=== PATIENT | female | born 1970 | race Caucasian/White ===

== ENCOUNTER 2024-07-13 07:31 | Outpatient (CLI) | payer MEDICAID, SELFPAY ==
--- NOTE | 2024-07-13 07:35 | MR_ITS ---
WS: [id number] MRI RIGHT SHOULDER NONCONTRAST TECHNIQUE: Sagittal T2, coronal T1, T2 and proton density imaging. Axial gradient PDE imaging. CLINICAL INFORMATION: RIGHT SHOULDER DERANGEMENT COMPARISON: None. FINDINGS: Moderate degenerative arthritis AC joint with fluid and edema. Subacromial subdeltoid fluid. Slight s ubacromial spurring. Impingement on the distal supraspinatus with tendinopathy. Tiny intrasubstance t ear distal supraspinatus. No tendon retraction. Normal infraspinatus. Normal teres minor. Subscapularis tendon appears intact. Biceps tendon appears intact within the bicipital groove. Intra-articular biceps tendon appears intact with tendinopathy. Small intra substance tear intra-articular biceps tendon. Advanced degenerative narrowing glenohumera l articulation. T2 signal abnormality likely due to subchondral degenerative change within the greate r tuberosity. MR/MR shoulder RT wo con* [id number] IMPRESSION: 1. Moderate degenerative arthritis AC joint with fluid and edema. 2. Impingement on the distal supraspinatus with subacromial spurring. Tendinop athy distal supraspinatus. 3. Otherwise normal rotator cuff. 4. Biceps tendon appears intact in the bicipital groove. 5. Tendinopathy with small intrasubstance tear intra-articular biceps tendon. 6. Moderate degenerative narrowing glenohumeral articulation. 7. Edema within the humeral head at the greater tuberosity likely due to subch ondral degenerative changes.
== END 2024-07-13 07:32 | disposition home or self-care (01) ==
LOC: RAD 07:32
PROVIDERS: Family Provider Physician Assistant; PCP Physician Assistant; Visit Provider Physician Assistant
DX: M19.011 Primary osteoarthritis, right shoulder (principal); M75.41 Impingement syndrome of right shoulder; M25.711 Osteophyte, right shoulder; M75.21 Bicipital tendinitis, right shoulder; S46.211A Strain of muscle, fascia and tendon of other parts of biceps, right arm, initial encounter; M25.411 Effusion, right shoulder; X58.XXXA Exposure to other specified factors, initial encounter
CPT/HCPCS: 73221

== ENCOUNTER 2025-01-17 20:45 | Emergency (ER) | payer MEDICAID, SELFPAY ==
[2025-01-17] VITALS (7 sets, daily range): BP systolic 116–130; BP diastolic 62–66; PULSE 67–84; RESP 16–18; TEMP 36.3; O2SAT 95–99; BMI 23.7
--- NOTE | 2025-01-17 21:03 | XRR_ITS ---
PROCEDURE INFORMATION: Exam: XR Right Hand Exam date and time: 01/17/2025 9:08 PM Age: 54 years old Clinical indication: Injury or trauma; Other: Dog bite; Finger; Thumb; Right; Additional info: Trauma, dog bite TECHNIQUE: Imaging protocol: Radiologic exam of the right hand. Views: 3 or more views. COMPARISON: No relevant prior studies available. FINDINGS: Bones/joints: Crushing type of comminuted fracture pattern involving the tip of the 1st distal phalanx. No dislocation. Soft tissues: Overlying soft tissue swelling and irregularity related to the patient's trauma history. XR/XR hand RT min 3V* [id number] IMPRESSION: As above.
[2025-01-17] MEDS: tetanus-dipt-pertussis 0.5 mL SDV IM (21:36)
--- NOTE | 2025-01-17 22:59 | W.ED.ANIMALB ---
HPI - Animal Bite General: Chief Complaint: Animal Bite Stated Complaint: Dog bite right hand Time Seen by Provider: 01/17/25 21:03 Source: patient Mode of arrival: ambulatory Limitations: no limitations History of Present Illness: 54yo female presents with daughter for evaluation of a dog bite that occurred at 2030 this evening. Patient reports she was breaking up a fight with her dogs when her corgi accidentally bit her on the right thumb. Patient states she is right-hand dominant. She has not taken anything for the pain. She is unsure when her last tetanus was updated. States the pain currently is 7/10. She denies any other injury or concern at this time. Associated symptoms: Deny chills or fever(s) Related Data Home Medications ?Medication ?Instructions ?Recorded ?Confirmed [id number]-[id number]-[id number] 250 1 tab PO DAILY PRN 09/14/19 09/14/19 mg-250 mg-65 mg tablet (Excedrin Extra Strength) Previous Rx's ?Medication ?Instructions ?Recorded amoxicillin 875 mg-potassium 1 tab PO Q12H #14 tabs 01/18/25 clavulanate 125 mg tablet hydrocodone 5 mg-acetaminophen 325 1 tab PO Q6H PRN pain, moderate 01/18/25 mg tablet #20 tabs Allergies Allergy/AdvReac Type Severity Reaction Status Date / Time No Known Allergies Allergy Verified 01/17/25 20:55 Review of Systems Const: Denies: fever(s), chills or body aches Card: Denies: chest pain Resp: Denies: dyspnea GI: Denies: vomiting Musc: Reports: extremity pain (Right thumb) Physical Exam Const: COMMON NORMALS: no acute distress, patient oriented x3 and alert GENERAL APPEARANCE: cooperative ORIENTATION/CONSCIOUSNESS: Yes awake OTHER: Patient is sitting upright on the stretcher in no acute distress. She was noted to be guarding her right thumb. She is interactive with exam appropriately. Family is at bedside HENMT: COMMON NORMALS: normocephalic and atraumatic HEAD & SCALP: normocephalic and atraumatic Chest: CHEST: Yes Symmetrical chest wall rise Resp: COMMON NORMALS: normal respiratory effort and clear to auscultation bilaterally AUSCULTATION: clear to auscultation bilaterally Extremity: RIGHT UPPER EXTREMITY: Yes hand & digits (Bite wound right thumb) Neuro: COMMON NORMALS: patient oriented x3 SENSORIUM/ORIENTATION: Yes alert Psych: COMMON NORMALS: cooperative Skin: TRAUMA: laceration (right thumb) OTHER: Partial amputation distal right thumb across the nail and around to volar aspect. Attached on medial side, volar aspect Procedures Laceration Laceration 1: Site: upper extremity (Right thumb) Side (If applicable): right Size (cm): 3 Description: other (partial amputation) Local Anesthetic: lidocaine 1% and bupivacaine 0.5% Amount of anesthesia used (mL): 4 (Digit block) Pre-repair: wound explored and irrigated extensively Skin layer closed with: nylon Size (cm): 4-0 Number of sutures: 5 Technique: simple, interrupted Course Vital Signs: Vital signs: Vital Signs Temperature 97.4 F L 01/17/25 20:51 Pulse Rate 68 01/18/25 01:28 Respiratory Rate 14 01/18/25 00:30 Blood Pressure 101/57 01/18/25 01:28 Pulse Oximetry 96 01/18/25 01:28 Oxygen Delivery Me thod Room Air 01/18/25 00:30 MDM - Animal Bite Medical Decision Making 54yo female presents with daughter for evaluation of a dog bite that occurred at 2029 this evening. Patient reports she was breaking up a fight with her dogs when her corgi accidentally bit her on the right thumb. Patient states she is right-hand dominant. She has not taken anything for the pain. She is unsure when her last tetanus was updated. States the pain currently is 7/10. She denies any other injury or concern at this time. Patient is nontoxic in appearance. Vital signs are stable. Tetanus updated. X-ray reveals crushing type comminuted fracture pattern involving the tip of the first distal phalanx, no dislocation noted. On initial exam, tip of the thumb noted to be in appropriate position with a laceration horizontally across the nail and to the volar aspect of the digit. After digit block, patient bumped her thumb and thumb was noted to be hanging by spot on the tissue and skin on the medial side of the volar aspect of the right thumb. Discussed case with Dr. Roth, orthopedics. He does not work on hands. 2300: Consult to [facility] hand orthopedics due to injury being from a dog bite and is now a partial amputation 0020: Discussed case with Dr. Aguilera, hand orthopedics at [facility]. She does recommend irrigation, tacking the tip down, and beginning antibiotics. She will follow-up in clinic. Wound was copiously irrigated and amputated tip tacked to the digit. Patient tolerated well. Patient did receive first dose of Augmentin while in the emergency department as well as pain medications. Prescriptions of each were sent to patient's pharmacy, sedation precautions provided. Discussed wound care and instructed in dressing changes. Advised to follow-up with Dr. Aguilera as soon as possible. Return precautions provided. Patient and family state understanding and have no further questions or concerns at this time. Differential Diagnosis Likely dog bite Medical Records I reviewed the patient's medical records. Lab Data Radiology Impressions Hand X-Ray 01/17/25 21:03 IMPRESSION: As above. All radiology interpretation(s) finalized by discharge Discharge Plan Discharge Patient Disposition: Home Clinical Impression: Partial traumatic amputation of right thumb through phalanx Qualifiers: Encounter type: initial encounter Qualified Code(s): S68.521A - Partial traumatic transphalangeal amputation of right thumb, initial encounter Dog bite Qualifiers: Encounter type: initial encounter Qualified Code(s): W54.0XXA - Bitten by dog, initial encounter Condition: Stable Prescriptions: New hydrocodone-acetaminophen 5-325 mg tablet 1 tab PO Q6H PRN (Reason: pain, moderate) Qty: 20 0RF amoxicillin-pot clavulanate 875-125 mg tablet 1 tab PO Q12H Qty: 14 0RF No Action Excedrin Extra Strength 250-250-65 mg tablet 1 tab PO DAILY PRN Discharge Orders: Discharge ED (Routine); Ordered 01/18/25 Ordered By: Cuauhtemoc Keys Referrals: Nakia Naylor PA [Primary Care Provider, [facility]] Discharge Diet: Usual diet Discharge Activity: Limit activity as instructed Patient Instructions: Animal Bite (ED), Finger Amputation (ED), Opioid Safety, Pain Management Activity Restrictions/Additional Instructions: Augmentin has been sent to the pharmacy to help prevent infection from the dog bite Hydrocodone has been sent to the pharmacy to help with moderate to severe pain. Please not drive or operate heavy machinery while taking hydrocodone You may use [id number] pain medications for mild pain Please complete dressing changes as discussed No activity with the right thumb until you have been cleared by orthopedics Follow-up with Dr. Aguilera, hand surgeon at [facility]. Please call her office tomorrow to schedule an appointment. Her contact information is as follows: Address: [facility], [address], [place], [place], [address] Return to the emergency department if any rapid worsening symptoms, concern for infection, and as needed Print Language: Uzbek Coding Level of Care Code ED [facility] Assistant Director for Farhana Ford
[2025-01-18] VITALS: BP 101/57; PULSE 66; RESP 14; O2SAT 99
[2025-01-18 00:30] VITALS: BP 101/57; PULSE 69; RESP 14; O2SAT 96
[2025-01-18 01:28] VITALS: BP 101/57; PULSE 68; O2SAT 96
== END 2025-01-18 01:30 | disposition home or self-care (01) ==
PROVIDERS: Emergency Provider Nurse Practitioner; PCP Physician Assistant
DX: S68.521A Partial traumatic transphalangeal amputation of right thumb, initial encounter (principal); W54.0XXA Bitten by dog, initial encounter
CPT/HCPCS: 12042; 73130; 90471; 90715; 99283

== ENCOUNTER → 2025-01-30 16:58 | Outpatient (BNVA) | payer MEDICAID, SELFPAY | PROVIDERS: PCP Physician Assistant; Visit Provider Registered Nurse Neonatal Intensive Care | DX: S62.521A Displaced fracture of distal phalanx of right thumb, initial encounter for closed fracture (principal); W54.0XXA Bitten by dog, initial encounter | CPT/HCPCS: 73130 ==